=== PATIENT | female | born 1965 | race African-American/Black ===

== ENCOUNTER 2016-12-07 16:32 | Inpatient (IN) | payer OTHER ==
[2016-12-07 17:22] VITALS: BMI 16.2
--- NOTE | 2016-12-07 20:04 | HP ---
Admission [facility] Chief Complaint: REHAB SERVICES Allergies/Adverse Reactions: Allergies Allergy/AdvReac Type Severity Reaction Status Date / Time Penicillins AdvReac Verified 12/07/16 19:57 History of Present Illness: 50 Y.O. WOMAN WITH A HISTORY OF CRACK COCAINE DEPENDENCE. SHE REPORTS HAVING A 27 YEAR HISTORY OF BEING CLEAN BUT STATES SHE RELAPSED IN 2012. Exam Limitations: No Limitations - Ebola screening Have you traveled outside of the country in the last 21 days: No (N) Have you had contact with anyone from an Ebola affected area: No Have you been sick,other than usual withdrawal symptoms: No Do you have a fever: No - Review of Systems Constitutional: Chills, Loss of Appetite, Unintentional Wgt. Loss EENT: reports: Blurred Vision, Double Vision, Tearing Respiratory: reports: Cough, Wheezing Cardiac: reports: No Symptoms Reported GI: reports: Nausea : reports: No Symptoms Reported Musculoskeletal: reports: Back Pain Integumentary: reports: No Symptoms Reported Neuro: reports: Headache (H/O MIGRAINES) Endocrine: reports: No Symptoms Reported Hematology: reports: Anemia Psychiatric: reports: Orientated x3 Other Systems: Reviewed and Negative Patient History - Patient Medical History Hx Anemia: Yes Hx Asthma: Yes Hx Chronic Obstructive Pulmonary Disease (COPD): No Hx Cancer: Yes (BREAST CA-IN REMISSION SINCE 2004 ) Hx Cardiac Disorders: No Hx Congestive Heart Failure: No Hx Hypertension: Yes Hx Hypercholesterolemia: Yes Hx Pacemaker: No HX Cerebrovascular Accident: No Hx Seizures: No Hx Dementia: No Hx Diabetes: No Hx Gastrointestinal Disorders: Yes (GERD) Hx Liver Disease: No Hx Genitourinary Disorders: No Hx Sexually Transmitted Disorders: No Hx Renal Disease (ESRD): No Hx Thyroid Disease: No Hx Human Immunodeficiency Virus (HIV): No Hx Hepatitis C: No Hx Depression: Yes Hx Suicide Attempt: Yes (ATTEMPTED TO OVERDOSE ON MEDICATIONS LAST MONTH) Hx Bipolar Disorder: Yes Hx Schizophrenia: Yes - Patient Surgical History Past Surgical History: Yes Other Surgical History: RIGHT BREAST MASTECTOMY AND RECONSTRUCTION Anesthesia Reaction: No - PPD History Previous Implant?: Yes Documented Results: Negative w/o proof PPD to be Administered?: Yes - Reproductive History Patient is a Female of Child Bearing Age (11 -55 yrs old): Yes Last Menstrual Period: 12/09/04 Patient : No - Smoking Cessation Smoking history: Current every day smoker Have you smoked in the past 12 months: Yes Aproximately how many cigarettes per day: 10 Initiated information on smoking cessation: Yes 'Breaking Loose' booklet given: 12/07/16 - Substance & Tx. History Hx Alcohol Use: No Hx Substance Use: Yes Substance Use Type: Cocaine Hx Substance Use Treatment: Yes (REHAB: 1994; DENIES DETOX ) - Substances Abused Crack Route: Smoking Frequency: 3-6 times per week Amount used: $400 Age of first use: 25 Date of Last Use: 12/06/16 Family Disease History - Family Disease History Family History: Denies Admission Physical Exam S - Vital Signs Vital Signs: Vital Signs - 24 hr 12/07/16 17:20 Temperature 95.9 F L Pulse Rate 101 H Respiratory 20 Rate Blood Pressure 126/78 - Physical General Appearance: Yes: Thin HEENTM: Yes: Hearing grossly Normal, Normal ENT Inspection, Normocephalic Respiratory: Yes: Chest Non-Tender, Lungs Clear, Normal Breath Sounds, No Respiratory Distress, No Accessory Muscle Use Neck: Yes: No masses,lesions,Nodules Breast: Yes: Mastectomy, Surgical Scar (RIGHT BREAST) Cardiology: Yes: Regular Rhythm, Tachycardia Abdominal: Yes: Non Tender, Flat, Soft Genitourinary: Yes: Other (NO COMPLAINTS REPORTED) Back: Yes: Normal Inspection Musculoskeletal: Yes: Back pain Extremities: Yes: Normal Inspection, Normal Range of Motion 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 WENT TO ER AT [facility]LI[facility] TODAY FOR MALAISE. CXR PERFORMED AND FINDINGS WERE FOLLOWED: STELLATE DENSITY IN THE RIGHT UPPER LOBE. A NODULE IS NOT EXCLUDED. CT OF THE CHEST IS RECOMMENDED ON A NONEMERGENT BASIS. PT. HAS A FOLLOW-UP APPOINTMENT SCHEDULED FOR 12/14/16. IT WAS ADVISED THAT THE CLIENT MAINTAIN THAT APPOINTMENT AND SEEK REHAB SERVICES AFTERWARD. PT. REFUSED AND STATED SHE WANTED TO DO REHAB NOW AND INTENDS TO RESCHEDULE THE FOLLOW-UP APPOINTMENT. - Diagnostic (1) Cocaine dependence, uncomplicated Current Visit: Yes Status: Chronic (2) Asthma Current Visit: Yes Status: Chronic (3) Osteoporosis Current Visit: Yes Status: Chronic (4) GERD (gastroesophageal reflux disease) Current Visit: Yes Status: Chronic (5) Underweight Current Visit: Yes Status: Chronic (6) Migraine Current Visit: Yes Status: Chronic Cleared for Admission [facility] - Detox or Rehab [facility] Level of Care: Observation Bed Claeared for Rehab Admission: Yes [facility] Breath Alcohol Content Breath Alcohol Content: 0 Urine Pregancy Test - Result Urine Test Results: Negative- NO Line Present Urine Drug Screen - Results Drug Screen Negative: No Urine Drug Screen Results: AJ-Cocaine, TCA-Tricyclic Antidepress
[2016-12-07] MEDS ORDERED: MAGNESIUM HYDROX 2400MG/30ML ORAL SUSPENSION 30 ML CUP PO PRN (20:49)
[2016-12-07] MEDS ORDERED: ACETAMINOPHEN 325 MG TABLET (FP) PO PRN (20:49)
[2016-12-07] MEDS ORDERED: diphenhydrAMINE HCL 50 MG CAPSULE PO PRN (20:49)
[2016-12-07] MEDS ORDERED: LOPERAMIDE HCL 2 MG CAPSULE PO PRN (20:49)
[2016-12-07] MEDS ORDERED: IBUPROFEN 600 MG TABLET (FP) PO PRN (20:49)
[2016-12-07] MEDS ORDERED: P-EPHED 60MG/TRIPROLIDI 2.5MG TABLET PO PRN (20:49)
[2016-12-07] MEDS ORDERED: MAGNESIUM CITRATE 300 ML BOTTLE PO PRN (20:49)
[2016-12-07] MEDS ORDERED: MENTHOL/PHENOL 1 EACH UD MM PRN (20:49)
[2016-12-07] MEDS ORDERED: MAG HYDROX/AL HYDROX/SIMETH 30 ML UNIT-DOSE CUP PO PRN (20:49)
[2016-12-07] MEDS ORDERED: guaiFENesin/D-METHORPHAN HB 10 ML UNIT-DOSE CUPS PO PRN (20:49)
[2016-12-07] MEDS ORDERED: TUBERCULIN PPD 5 TU/0.1ML VIAL ID ONE (23:06)
[2016-12-07] MEDS: FLUTICASONE/SALMETEROL 100 MCG/50 MCG DISKUS IH SCH (23:09)
[2016-12-07] MEDS: THIAMINE HCL 100 MG TABLET (FP) PO SCH (23:09)
[2016-12-08] MEDS ORDERED: PT OWN MED DRAWER 7, Y5N ONE (08:16)
[2016-12-08 09:58] LABS: URINE APPEARANCE CLEAR; URINE BILIRUBIN NEGATIVE (NEGATIVE); URINE BLOOD NEGATIVE (NEGATIVE); URINE COLOR STRAW; URINE GLUCOSE (UA) NEGATIVE (NEGATIVE); URINE KETONE NEGATIVE (NEGATIVE); URINE NITRITE NEGATIVE (NEGATIVE); URINE PROTEIN NEGATIVE (NEGATIVE); URINE UROBILINOGEN NEGATIVE mg/dL (0.2-1.0)
[2016-12-08 10:00] LABS: URINE LEUK ESTERASE 1+ (NEGATIVE)
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
[2016-12-08 10:27] LABS: URINE BACTERIA RARE /hpf (NONE SEEN); URINE RBC 1 /hpf (0-3); URINE WBC 3 /hpf (3-5)
[2016-12-08] MEDS: FLUTICASONE/SALMETEROL 100 MCG/50 MCG DISKUS IH SCH ×2 (10:29→21:31)
[2016-12-08] MEDS: NICOTINE 14 MG/24 HOURS TOPICAL PATCH TD SCH (10:30)
[2016-12-08] MEDS: PRENATAL VITAMINS W/ FOLIC ACID TABLET (FP) PO SCH (10:30)
[2016-12-08] MEDS: PANTOPRAZOLE 20 MG TABLET (FP) PO SCH (10:31)
[2016-12-08] MEDS: QUEtiapine FUMARATE 50 MG TABLET PO SCH (13:04)
[2016-12-08 13:14] LABS: MCH 29.6 pg (25.7-33.7); MCHC 32.5 g/dl (32.0-36.0); MEAN CELL VOLUME 91.2 fl (80-96); PLATELET COUNT 290 K/MM3 (134-434); RDW 14.6 % (11.6-15.6); WHITE BLOOD COUNT 7.9 K/mm3 (4.0-10.0)
[2016-12-08 13:35] LABS: ALBUMIN 3.1 g/dl (3.4-5.0); ALK PHOS 84 U/L (45-117); ANION GAP 8 (8-16); BILIRUBIN,TOTAL 0.1 mg/dL (0.2-1.0); CALCIUM 8.8 mg/dL (8.5-10.1); CO2 27 mmol/L (21-32); GLUCOSE,RANDOM 68 mg/dL (74-106); SGOT/AST 7 U/L (15-37); SGPT/ALT 13 U/L (12-78); TOT PROT 6.9 g/dl (6.4-8.2)
--- NOTE | 2016-12-08 14:50 | EKG ---
Test Reason : Blood Pressure : / mmHG Vent. Rate : 092 BPM Atrial Rate : 092 BPM P-R Int : 128 ms QRS Dur : 098 ms QT Int : 388 ms P-R-T Axes : 079 085 079 degrees QTc Int : 479 ms NORMAL SINUS RHYTHM NORMAL ECG NO PREVIOUS ECGS AVAILABLE Confirmed by MOOKIE NAILS MD ([id number]) on 12/08/2016 2:50:09 PM Referred By: Confirmed By:MOOKIE NAILS MD
[2016-12-08] MEDS: IBUPROFEN 400 MG TABLET (FP) PO PRN (18:28)
[2016-12-08] MEDS: LIDOCAINE 5% TOPICAL PATCH TP SCH (18:32)
[2016-12-08] MEDS: LIDOCAINE PATCH REMOVAL MC SCH (21:29)
[2016-12-08] MEDS: THIAMINE HCL 100 MG TABLET (FP) PO SCH (21:30)
[2016-12-08] MEDS: MIRTAZAPINE 15 MG TABLET (FP) PO SCH (21:30)
[2016-12-08] MEDS: QUEtiapine FUMARATE 100 MG TABLET (FP) PO SCH (21:30)
[2016-12-09] MEDS: NICOTINE 14 MG/24 HOURS TOPICAL PATCH TD SCH (10:19)
[2016-12-09] MEDS: LIDOCAINE 5% TOPICAL PATCH TP SCH (10:19)
[2016-12-09] MEDS: FLUTICASONE/SALMETEROL 100 MCG/50 MCG DISKUS IH SCH ×2 (10:20→21:25)
[2016-12-09] MEDS: PRENATAL VITAMINS W/ FOLIC ACID TABLET (FP) PO SCH (10:20)
[2016-12-09] MEDS: QUEtiapine FUMARATE 50 MG TABLET PO SCH ×2 (10:20→13:00)
[2016-12-09] MEDS: PANTOPRAZOLE 20 MG TABLET (FP) PO SCH (10:20)
[2016-12-09] MEDS: IBUPROFEN 400 MG TABLET (FP) PO PRN ×2 (12:49→18:38)
[2016-12-09] MEDS: MIRTAZAPINE 15 MG TABLET (FP) PO SCH (21:26)
[2016-12-09] MEDS: LIDOCAINE PATCH REMOVAL MC SCH (21:26)
[2016-12-09] MEDS: THIAMINE HCL 100 MG TABLET (FP) PO SCH (21:26)
[2016-12-09] MEDS: QUEtiapine FUMARATE 100 MG TABLET (FP) PO SCH (21:26)
[2016-12-10] MEDS: IBUPROFEN 400 MG TABLET (FP) PO PRN ×3 (04:14→22:36)
[2016-12-10] MEDS: NICOTINE 14 MG/24 HOURS TOPICAL PATCH TD SCH (10:24)
[2016-12-10] MEDS: QUEtiapine FUMARATE 50 MG TABLET PO SCH ×2 (10:25→13:02)
[2016-12-10] MEDS: FLUTICASONE/SALMETEROL 100 MCG/50 MCG DISKUS IH SCH ×2 (10:25→21:40)
[2016-12-10] MEDS: PANTOPRAZOLE 20 MG TABLET (FP) PO SCH (10:25)
[2016-12-10] MEDS: LIDOCAINE 5% TOPICAL PATCH TP SCH (10:25)
[2016-12-10] MEDS: PRENATAL VITAMINS W/ FOLIC ACID TABLET (FP) PO SCH (10:25)
[2016-12-10] MEDS: MIRTAZAPINE 15 MG TABLET (FP) PO SCH (21:39)
[2016-12-10] MEDS: THIAMINE HCL 100 MG TABLET (FP) PO SCH (21:39)
[2016-12-10] MEDS: QUEtiapine FUMARATE 100 MG TABLET (FP) PO SCH (21:39)
[2016-12-10] MEDS: LIDOCAINE PATCH REMOVAL MC SCH (21:40)
[2016-12-11] MEDS: IBUPROFEN 400 MG TABLET (FP) PO PRN ×3 (07:56→21:25)
[2016-12-11] MEDS: FLUTICASONE/SALMETEROL 100 MCG/50 MCG DISKUS IH SCH ×2 (09:39→21:27)
[2016-12-11] MEDS: PRENATAL VITAMINS W/ FOLIC ACID TABLET (FP) PO SCH (09:39)
[2016-12-11] MEDS: LIDOCAINE 5% TOPICAL PATCH TP SCH (09:39)
[2016-12-11] MEDS: NICOTINE 14 MG/24 HOURS TOPICAL PATCH TD SCH (09:40)
[2016-12-11] MEDS: QUEtiapine FUMARATE 50 MG TABLET PO SCH ×2 (09:40→13:07)
[2016-12-11] MEDS: PANTOPRAZOLE 20 MG TABLET (FP) PO SCH (09:40)
[2016-12-11] MEDS: THIAMINE HCL 100 MG TABLET (FP) PO SCH (21:25)
[2016-12-11] MEDS: MIRTAZAPINE 15 MG TABLET (FP) PO SCH (21:25)
[2016-12-11] MEDS: QUEtiapine FUMARATE 100 MG TABLET (FP) PO SCH (21:25)
[2016-12-11] MEDS: LIDOCAINE PATCH REMOVAL MC SCH (21:26)
[2016-12-12] MEDS: IBUPROFEN 400 MG TABLET (FP) PO PRN ×2 (05:02→19:05)
[2016-12-12] MEDS: QUEtiapine FUMARATE 50 MG TABLET PO SCH ×2 (09:43→13:03)
[2016-12-12] MEDS: FLUTICASONE/SALMETEROL 100 MCG/50 MCG DISKUS IH SCH ×2 (09:43→21:34)
[2016-12-12] MEDS: NICOTINE 14 MG/24 HOURS TOPICAL PATCH TD SCH (09:43)
[2016-12-12] MEDS: PANTOPRAZOLE 20 MG TABLET (FP) PO SCH (09:44)
[2016-12-12] MEDS: LIDOCAINE 5% TOPICAL PATCH TP SCH (09:44)
[2016-12-12] MEDS: PRENATAL VITAMINS W/ FOLIC ACID TABLET (FP) PO SCH (09:44)
[2016-12-12] MEDS: ALBUTEROL SO4 6.7 GM HFA INHALER IH PRN (15:12)
[2016-12-12] MEDS: QUEtiapine FUMARATE 100 MG TABLET (FP) PO SCH (21:33)
[2016-12-12] MEDS: MIRTAZAPINE 15 MG TABLET (FP) PO SCH (21:33)
[2016-12-12] MEDS: THIAMINE HCL 100 MG TABLET (FP) PO SCH (21:33)
[2016-12-12] MEDS: LIDOCAINE PATCH REMOVAL MC SCH (21:54)
[2016-12-13] MEDS: IBUPROFEN 400 MG TABLET (FP) PO PRN ×2 (04:31→13:31)
[2016-12-13] MEDS ORDERED: PT OWN MED DRAWER 7, Y5N ONE (09:09)
[2016-12-13] MEDS: PRENATAL VITAMINS W/ FOLIC ACID TABLET (FP) PO SCH (10:23)
[2016-12-13] MEDS: PANTOPRAZOLE 20 MG TABLET (FP) PO SCH (10:23)
[2016-12-13] MEDS: QUEtiapine FUMARATE 50 MG TABLET PO SCH ×3 (10:23→21:39)
[2016-12-13] MEDS: LIDOCAINE 5% TOPICAL PATCH TP SCH (10:24)
[2016-12-13] MEDS: NICOTINE 14 MG/24 HOURS TOPICAL PATCH TD SCH (10:25)
[2016-12-13] MEDS: FLUTICASONE/SALMETEROL 100 MCG/50 MCG DISKUS IH SCH ×2 (10:51→21:38)
--- NOTE | 2016-12-13 13:36 | PN ---
Psychiatric Progress Note Vital Signs: Vital Signs Period Temp Pulse Resp BP Sys/Buenrostro Pulse Ox Last 24 Hr 98.0 F 98 16-18 106/69 Date of Session: 12/13/16 Chief Complaint:: William still having sleeping difficulties." HPI: Patient addresed Cociane and alcohol dependence comorbid with Bipolar disorder. ROS: Significant for BA,Migraine headache,GERD,Ostheoporosis. Current Medications: Active Medications Generic Name Dose Route Start Last Admin Trade Name Freq PRN Reason Stop Dose Admin Acetaminophen 650 mg 12/07/16 20:49 Tylenol - PO Q4H PRN PAIN Al Hydroxide/Mg Hydroxide 30 ml 12/07/16 20:49 Mylanta Oral Suspension - PO Q6H PRN DYSPEPSIA Albuterol Sulfate 2 puff 12/07/16 20:51 12/12/16 15:12 Ventolin Hfa Inhaler - IH 2 puff Q4H PRN Administration SHORT OF BREATH/WHEEZING Diphenhydramine HCl 50 mg 12/07/16 20:49 12/09/16 21:27 Benadryl - PO 50 mg HSMR1 PRN Administration INSOMNIA Eucalyptus/Menthol/Phenol/Sorbitol 1 each 12/07/16 20:49 Cepastat Lozenge - MM Q4H PRN SORE THROAT Guaifenesin 10 ml 12/07/16 20:49 Robitussin Dm - PO Q6H PRN COUGH Ibuprofen 800 mg 12/08/16 15:48 12/13/16 13:31 Motrin - PO 800 mg Q6H PRN Administration SEVERE PAIN Lidocaine 1 patch 12/08/16 17:30 12/13/16 10:24 Lidoderm Patch - TP 1 patch DAILY MANAN Administration Lidocaine HCl 20 ml 12/13/16 13:09 Xylocaine 2% Viscous Oral - MM Q4HPO PRN ORAL PAIN/MOUTH SORES Loperamide HCl 4 mg 12/07/16 20:49 Imodium - PO Q6H PRN DIARRHEA Magnesium Citrate 300 ml 12/07/16 20:49 Citroma - PO Q48H PRN CONSTIPATION Magnesium Hydroxide 30 ml 12/07/16 20:49 12/11/16 10:17 Milk Of Magnesia - PO 30 ml DAILY PRN Administration CONSTIPATION Mirtazapine 15 mg 12/08/16 22:00 12/12/16 21:33 Remeron - PO 15 mg HS MANAN Administration Miscellaneous 1 each 12/08/16 22:00 12/12/16 21:54 Lidoderm Patch Removal MC 1 each DAILY@2200 MANAN Administration Nicotine 14 mg 12/08/16 10:00 12/13/16 10:25 Nicoderm Patch - TD 14 mg DAILY MANAN Administration Nicotine Polacrilex 2 mg 12/07/16 20:49 Nicorette Gum - BC Q2H PRN NICOTINE REPLACEMENT RX Pantoprazole Sodium 20 mg 12/08/16 10:00 12/13/16 10:23 Protonix - PO 20 mg DAILY MANAN Administration Multivit/Folic Acid/Iron 1 tab 12/08/16 10:00 12/13/16 10:23 Vitamins (Sjr) - PO 1 tab DAILY MANAN Administration Pseudoephedrine/Triprolidine 1 combo 12/07/16 20:49 Actifed - PO TID PRN NASAL CONGESTION Quetiapine Fumarate 50 mg 12/08/16 14:00 12/13/16 10:23 Seroquel - PO 50 mg BID@1000,1400 MANAN Administration Quetiapine Fumarate 150 mg 12/13/16 22:00 Seroquel - PO HS MANAN Fluticasone/Salmeterol 1 puff 12/07/16 22:00 12/13/16 10:51 Advair 100mcg/50mcg - IH 1 puff BID MANAN Administration Thiamine HCl 100 mg 12/07/16 22:00 12/12/16 21:33 Vitamin B1 - PO 100 mg HS MANAN Administration Current Side Effect: No Lab tests ordered: No Lab tests reviewed: Yes Provider note:: Chart was revuewed,patient was seen.She addressed ongoing sleeping difficulties :inability to fallasleep,interrupted sleep pattern.Properties iof Seroquel has been discussed with the patient including side eefcts,benefits and dose adjustment.Seroquel 100 mg po hs will be adjusted to 150 mg po hs. Supportive therapy provided. Total face to face time:: 30 Mental Status Exam - Mental Status Exam Alert and Oriented to: Time, Place, Person Cognitive Function: Grossly Intact Patient Appearance: Unkempt Mood: Anxious Affect: Mood Congruent, Labile Patient Behavior: Cooperative Speech Pattern: Clear Voice Loudness: Normal Thought Process: Goal Oriented Thought Disorder: Not Present Hallucinations: Denies Suicidal Ideation: Denies Homicidal Ideation: Denies Insight/Judgement: Fair Sleep: Difficulty falling asleep Appetite: Good Muscle strength/Tone: Normal Gait/Station: Normal Psychiatric Treatment Plan - Problem List (1) Asthma Current Visit: Yes (2) Cocaine dependence, uncomplicated Current Visit: Yes (3) GERD (gastroesophageal reflux disease) Current Visit: Yes (4) Osteoporosis Current Visit: Yes (5) Migraine Current Visit: Yes (6) Alcohol abuse Current Visit: Yes (7) Bipolar disorder Current Visit: Yes
[2016-12-13] MEDS: LIDOCAINE PATCH REMOVAL MC SCH (21:38)
[2016-12-13] MEDS: MIRTAZAPINE 15 MG TABLET (FP) PO SCH (21:38)
[2016-12-13] MEDS: THIAMINE HCL 100 MG TABLET (FP) PO SCH (21:38)
[2016-12-13] MEDS ORDERED: QUEtiapine FUMARATE 25 MG TABLET (FP) ONE (21:40)
[2016-12-14] MEDS: IBUPROFEN 400 MG TABLET (FP) PO PRN ×3 (00:38→21:42)
[2016-12-14] MEDS: LIDOCAINE 5% TOPICAL PATCH TP SCH (10:11)
[2016-12-14] MEDS: PANTOPRAZOLE 20 MG TABLET (FP) PO SCH (10:12)
[2016-12-14] MEDS: FLUTICASONE/SALMETEROL 100 MCG/50 MCG DISKUS IH SCH ×2 (10:12→21:43)
[2016-12-14] MEDS: PRENATAL VITAMINS W/ FOLIC ACID TABLET (FP) PO SCH (10:12)
[2016-12-14] MEDS: NICOTINE 14 MG/24 HOURS TOPICAL PATCH TD SCH (10:13)
[2016-12-14] MEDS: QUEtiapine FUMARATE 50 MG TABLET PO SCH ×3 (10:13→21:41)
[2016-12-14] MEDS ORDERED: QUEtiapine FUMARATE 25 MG TABLET (FP) ONE (12:01)
[2016-12-14] MEDS: LIDOCAINE VISCOUS 2% ORAL/TOP 20 ML UNIT-DOSE CUP MM PRN (12:32)
[2016-12-14] MEDS: MIRTAZAPINE 15 MG TABLET (FP) PO SCH (21:41)
[2016-12-14] MEDS: THIAMINE HCL 100 MG TABLET (FP) PO SCH (21:41)
[2016-12-14] MEDS: LIDOCAINE PATCH REMOVAL MC SCH (21:43)
[2016-12-15] MEDS: IBUPROFEN 400 MG TABLET (FP) PO PRN (03:42)
[2016-12-15] MEDS: FLUTICASONE/SALMETEROL 100 MCG/50 MCG DISKUS IH SCH (09:59)
[2016-12-15] MEDS: LIDOCAINE 5% TOPICAL PATCH TP SCH (09:59)
[2016-12-15] MEDS: NICOTINE 14 MG/24 HOURS TOPICAL PATCH TD SCH (10:00)
[2016-12-15] MEDS: QUEtiapine FUMARATE 50 MG TABLET PO SCH ×3 (10:00→21:40)
[2016-12-15] MEDS: PANTOPRAZOLE 20 MG TABLET (FP) PO SCH (10:00)
[2016-12-15] MEDS: PRENATAL VITAMINS W/ FOLIC ACID TABLET (FP) PO SCH (10:00)
[2016-12-15] MEDS: MIRTAZAPINE 15 MG TABLET (FP) PO SCH (21:40)
[2016-12-15] MEDS: THIAMINE HCL 100 MG TABLET (FP) PO SCH (21:40)
[2016-12-15] MEDS: LIDOCAINE PATCH REMOVAL MC SCH (21:40)
[2016-12-15] MEDS: BUDESONIDE/FORMETEROL FUMARATE 80/4.5 mcg INHALER IH SCH (21:41)
[2016-12-16] MEDS: BUDESONIDE/FORMETEROL FUMARATE 80/4.5 mcg INHALER IH SCH ×2 (09:46→21:37)
[2016-12-16] MEDS: LIDOCAINE 5% TOPICAL PATCH TP SCH (09:47)
[2016-12-16] MEDS: NICOTINE 14 MG/24 HOURS TOPICAL PATCH TD SCH (09:47)
[2016-12-16] MEDS: PRENATAL VITAMINS W/ FOLIC ACID TABLET (FP) PO SCH (09:47)
[2016-12-16] MEDS: QUEtiapine FUMARATE 50 MG TABLET PO SCH ×3 (09:47→21:35)
[2016-12-16] MEDS: PANTOPRAZOLE 20 MG TABLET (FP) PO SCH (09:48)
[2016-12-16] MEDS: IBUPROFEN 400 MG TABLET (FP) PO PRN ×2 (10:37→21:37)
[2016-12-16] MEDS ORDERED: QUEtiapine FUMARATE 25 MG TABLET (FP) ONE (11:54)
[2016-12-16] MEDS: MIRTAZAPINE 15 MG TABLET (FP) PO SCH (21:35)
[2016-12-16] MEDS: THIAMINE HCL 100 MG TABLET (FP) PO SCH (21:35)
[2016-12-16] MEDS: LIDOCAINE PATCH REMOVAL MC SCH (21:37)
[2016-12-17] MEDS: BUDESONIDE/FORMETEROL FUMARATE 80/4.5 mcg INHALER IH SCH ×2 (10:08→21:52)
[2016-12-17] MEDS: LIDOCAINE 5% TOPICAL PATCH TP SCH (10:08)
[2016-12-17] MEDS: NICOTINE 14 MG/24 HOURS TOPICAL PATCH TD SCH (10:08)
[2016-12-17] MEDS: QUEtiapine FUMARATE 50 MG TABLET PO SCH ×3 (10:09→21:52)
[2016-12-17] MEDS: PRENATAL VITAMINS W/ FOLIC ACID TABLET (FP) PO SCH (10:09)
[2016-12-17] MEDS: PANTOPRAZOLE 20 MG TABLET (FP) PO SCH (10:09)
[2016-12-17] MEDS ORDERED: PT OWN MED DRAWER 7, Y5N ONE (19:46)
[2016-12-17] MEDS: THIAMINE HCL 100 MG TABLET (FP) PO SCH (21:52)
[2016-12-17] MEDS: MIRTAZAPINE 15 MG TABLET (FP) PO SCH (21:52)
[2016-12-17] MEDS: LIDOCAINE PATCH REMOVAL MC SCH (22:32)
[2016-12-18] MEDS: IBUPROFEN 400 MG TABLET (FP) PO PRN ×2 (00:30→15:35)
[2016-12-18] MEDS ORDERED: PT OWN MED DRAWER 7, Y5N ONE (08:48)
[2016-12-18] MEDS: LIDOCAINE VISCOUS 2% ORAL/TOP 20 ML UNIT-DOSE CUP MM PRN (08:50)
[2016-12-18] MEDS: NICOTINE 14 MG/24 HOURS TOPICAL PATCH TD SCH (09:59)
[2016-12-18] MEDS: PRENATAL VITAMINS W/ FOLIC ACID TABLET (FP) PO SCH (10:00)
[2016-12-18] MEDS: LIDOCAINE 5% TOPICAL PATCH TP SCH (10:00)
[2016-12-18] MEDS: QUEtiapine FUMARATE 50 MG TABLET PO SCH ×3 (10:00→21:44)
[2016-12-18] MEDS: PANTOPRAZOLE 20 MG TABLET (FP) PO SCH (10:00)
[2016-12-18] MEDS: BUDESONIDE/FORMETEROL FUMARATE 80/4.5 mcg INHALER IH SCH ×2 (10:01→21:45)
[2016-12-18] MEDS: MIRTAZAPINE 15 MG TABLET (FP) PO SCH (21:44)
[2016-12-18] MEDS: THIAMINE HCL 100 MG TABLET (FP) PO SCH (21:44)
[2016-12-18] MEDS: LIDOCAINE PATCH REMOVAL MC SCH (21:45)
[2016-12-19] MEDS ORDERED: PT OWN MED DRAWER 7, Y5N ONE (08:54)
[2016-12-19] MEDS: BUDESONIDE/FORMETEROL FUMARATE 80/4.5 mcg INHALER IH SCH ×2 (09:57→22:03)
[2016-12-19] MEDS: NICOTINE 14 MG/24 HOURS TOPICAL PATCH TD SCH (09:57)
[2016-12-19] MEDS: PRENATAL VITAMINS W/ FOLIC ACID TABLET (FP) PO SCH (09:57)
[2016-12-19] MEDS: PANTOPRAZOLE 20 MG TABLET (FP) PO SCH (09:57)
[2016-12-19] MEDS: QUEtiapine FUMARATE 50 MG TABLET PO SCH ×3 (09:57→22:02)
[2016-12-19] MEDS: LIDOCAINE 5% TOPICAL PATCH TP SCH (09:58)
[2016-12-19] MEDS: IBUPROFEN 400 MG TABLET (FP) PO PRN (13:24)
[2016-12-19] MEDS: MIRTAZAPINE 15 MG TABLET (FP) PO SCH (22:02)
[2016-12-19] MEDS: THIAMINE HCL 100 MG TABLET (FP) PO SCH (22:02)
[2016-12-19] MEDS: LIDOCAINE PATCH REMOVAL MC SCH (22:03)
[2016-12-20] MEDS: BUDESONIDE/FORMETEROL FUMARATE 80/4.5 mcg INHALER IH SCH ×2 (10:14→21:38)
[2016-12-20] MEDS: PANTOPRAZOLE 20 MG TABLET (FP) PO SCH (10:14)
[2016-12-20] MEDS: LIDOCAINE 5% TOPICAL PATCH TP SCH (10:14)
[2016-12-20] MEDS: NICOTINE 14 MG/24 HOURS TOPICAL PATCH TD SCH (10:14)
[2016-12-20] MEDS: PRENATAL VITAMINS W/ FOLIC ACID TABLET (FP) PO SCH (10:14)
[2016-12-20] MEDS: QUEtiapine FUMARATE 50 MG TABLET PO SCH ×3 (10:15→21:38)
[2016-12-20] MEDS: IBUPROFEN 400 MG TABLET (FP) PO PRN (10:17)
[2016-12-20] MEDS ORDERED: QUEtiapine FUMARATE 25 MG TABLET (FP) ONE (19:50)
[2016-12-20] MEDS: MIRTAZAPINE 15 MG TABLET (FP) PO SCH (21:38)
[2016-12-20] MEDS: THIAMINE HCL 100 MG TABLET (FP) PO SCH (21:38)
[2016-12-20] MEDS: LIDOCAINE PATCH REMOVAL MC SCH (23:08)
[2016-12-21] MEDS: IBUPROFEN 400 MG TABLET (FP) PO PRN ×2 (00:25→20:02)
[2016-12-21] MEDS ORDERED: PT OWN MED DRAWER 7, Y5N ONE ×2 (08:43→20:08)
[2016-12-21] MEDS: ALBUTEROL SO4 6.7 GM HFA INHALER IH PRN (10:00)
[2016-12-21] MEDS: PRENATAL VITAMINS W/ FOLIC ACID TABLET (FP) PO SCH (10:08)
[2016-12-21] MEDS: BUDESONIDE/FORMETEROL FUMARATE 80/4.5 mcg INHALER IH SCH ×2 (10:09→21:01)
[2016-12-21] MEDS: PANTOPRAZOLE 20 MG TABLET (FP) PO SCH (10:09)
[2016-12-21] MEDS: NICOTINE 14 MG/24 HOURS TOPICAL PATCH TD SCH (10:09)
[2016-12-21] MEDS: QUEtiapine FUMARATE 50 MG TABLET PO SCH ×3 (10:09→21:00)
[2016-12-21] MEDS: LIDOCAINE 5% TOPICAL PATCH TP SCH (10:09)
--- NOTE | 2016-12-21 13:31 | PN ---
[facility] Progress Note Note: Pt. claims she takes Imitrex for headaches at home,mostly at night. Imitrex 25mg HS PRN
[2016-12-21] MEDS: THIAMINE HCL 100 MG TABLET (FP) PO SCH (21:00)
[2016-12-21] MEDS: MIRTAZAPINE 15 MG TABLET (FP) PO SCH (21:00)
[2016-12-21] MEDS: LIDOCAINE PATCH REMOVAL MC SCH (21:01)
[2016-12-22] MEDS: SUMAtriptan SUCCINATE 25 MG TABLET PO PRN (00:30)
[2016-12-22] MEDS ORDERED: PT OWN MED DRAWER 7, Y5N ONE ×2 (01:17→08:45)
[2016-12-22] MEDS: LIDOCAINE 5% TOPICAL PATCH TP SCH (09:55)
[2016-12-22] MEDS: NICOTINE 14 MG/24 HOURS TOPICAL PATCH TD SCH (09:55)
[2016-12-22] MEDS: PANTOPRAZOLE 20 MG TABLET (FP) PO SCH (09:56)
[2016-12-22] MEDS: BUDESONIDE/FORMETEROL FUMARATE 80/4.5 mcg INHALER IH SCH ×2 (09:56→21:42)
[2016-12-22] MEDS: PRENATAL VITAMINS W/ FOLIC ACID TABLET (FP) PO SCH (09:56)
[2016-12-22] MEDS: QUEtiapine FUMARATE 50 MG TABLET PO SCH ×3 (09:56→21:39)
[2016-12-22] MEDS: MIRTAZAPINE 15 MG TABLET (FP) PO SCH (21:38)
[2016-12-22] MEDS: THIAMINE HCL 100 MG TABLET (FP) PO SCH (21:39)
[2016-12-22] MEDS: LIDOCAINE PATCH REMOVAL MC SCH (21:42)
[2016-12-23] MEDS: IBUPROFEN 400 MG TABLET (FP) PO PRN (01:10)
[2016-12-23] MEDS: NICOTINE 14 MG/24 HOURS TOPICAL PATCH TD SCH (10:09)
[2016-12-23] MEDS: LIDOCAINE 5% TOPICAL PATCH TP SCH (10:09)
[2016-12-23] MEDS: BUDESONIDE/FORMETEROL FUMARATE 80/4.5 mcg INHALER IH SCH ×2 (10:09→21:32)
[2016-12-23] MEDS: PRENATAL VITAMINS W/ FOLIC ACID TABLET (FP) PO SCH (10:10)
[2016-12-23] MEDS: QUEtiapine FUMARATE 50 MG TABLET PO SCH ×3 (10:10→21:31)
[2016-12-23] MEDS: PANTOPRAZOLE 20 MG TABLET (FP) PO SCH (10:10)
[2016-12-23] MEDS ORDERED: PT OWN MED DRAWER 7, Y5N ONE (20:53)
[2016-12-23] MEDS: ALBUTEROL SO4 6.7 GM HFA INHALER IH PRN (20:54)
[2016-12-23] MEDS: MIRTAZAPINE 15 MG TABLET (FP) PO SCH (21:31)
[2016-12-23] MEDS: THIAMINE HCL 100 MG TABLET (FP) PO SCH (21:31)
[2016-12-23] MEDS: LIDOCAINE PATCH REMOVAL MC SCH (21:32)
[2016-12-24] MEDS ORDERED: PT OWN MED DRAWER 7, Y5N ONE (08:44)
[2016-12-24] MEDS: BUDESONIDE/FORMETEROL FUMARATE 80/4.5 mcg INHALER IH SCH ×2 (10:15→21:43)
[2016-12-24] MEDS: PANTOPRAZOLE 20 MG TABLET (FP) PO SCH (10:15)
[2016-12-24] MEDS: NICOTINE 14 MG/24 HOURS TOPICAL PATCH TD SCH (10:15)
[2016-12-24] MEDS: PRENATAL VITAMINS W/ FOLIC ACID TABLET (FP) PO SCH (10:15)
[2016-12-24] MEDS: LIDOCAINE 5% TOPICAL PATCH TP SCH (10:16)
[2016-12-24] MEDS ORDERED: QUEtiapine FUMARATE 25 MG TABLET (FP) ONE (13:20)
[2016-12-24] MEDS: QUEtiapine FUMARATE 50 MG TABLET PO SCH ×2 (13:25→21:42)
[2016-12-24] MEDS: THIAMINE HCL 100 MG TABLET (FP) PO SCH (21:42)
[2016-12-24] MEDS: MIRTAZAPINE 15 MG TABLET (FP) PO SCH (21:42)
[2016-12-24] MEDS: LIDOCAINE PATCH REMOVAL MC SCH (21:44)
[2016-12-25] MEDS: IBUPROFEN 400 MG TABLET (FP) PO PRN (00:48)
[2016-12-25] MEDS: LIDOCAINE 5% TOPICAL PATCH TP SCH (09:46)
[2016-12-25] MEDS: PANTOPRAZOLE 20 MG TABLET (FP) PO SCH (09:47)
[2016-12-25] MEDS: PRENATAL VITAMINS W/ FOLIC ACID TABLET (FP) PO SCH (09:47)
[2016-12-25] MEDS: BUDESONIDE/FORMETEROL FUMARATE 80/4.5 mcg INHALER IH SCH ×2 (09:47→21:30)
[2016-12-25] MEDS: NICOTINE 14 MG/24 HOURS TOPICAL PATCH TD SCH (09:47)
[2016-12-25] MEDS: QUEtiapine FUMARATE 50 MG TABLET PO SCH ×2 (13:06→21:29)
[2016-12-25] MEDS ORDERED: QUEtiapine FUMARATE 25 MG TABLET (FP) ONE (19:19)
[2016-12-25] MEDS: LIDOCAINE PATCH REMOVAL MC SCH (21:29)
[2016-12-25] MEDS: THIAMINE HCL 100 MG TABLET (FP) PO SCH (21:30)
[2016-12-25] MEDS: MIRTAZAPINE 15 MG TABLET (FP) PO SCH (21:30)
[2016-12-25] MEDS: SUMAtriptan SUCCINATE 25 MG TABLET PO PRN (21:31)
[2016-12-26] MEDS: IBUPROFEN 400 MG TABLET (FP) PO PRN ×2 (06:31→19:58)
[2016-12-26] MEDS: LIDOCAINE 5% TOPICAL PATCH TP SCH (09:44)
[2016-12-26] MEDS: NICOTINE 14 MG/24 HOURS TOPICAL PATCH TD SCH (09:44)
[2016-12-26] MEDS: PANTOPRAZOLE 20 MG TABLET (FP) PO SCH (09:45)
[2016-12-26] MEDS: BUDESONIDE/FORMETEROL FUMARATE 80/4.5 mcg INHALER IH SCH ×2 (09:45→21:22)
[2016-12-26] MEDS: PRENATAL VITAMINS W/ FOLIC ACID TABLET (FP) PO SCH (09:45)
[2016-12-26] MEDS: QUEtiapine FUMARATE 50 MG TABLET PO SCH ×2 (13:10→21:22)
[2016-12-26] MEDS: THIAMINE HCL 100 MG TABLET (FP) PO SCH (21:22)
[2016-12-26] MEDS: MIRTAZAPINE 15 MG TABLET (FP) PO SCH (21:23)
[2016-12-26] MEDS: LIDOCAINE PATCH REMOVAL MC SCH (21:23)
[2016-12-27] MEDS: LIDOCAINE 5% TOPICAL PATCH TP SCH (10:02)
[2016-12-27] MEDS: PRENATAL VITAMINS W/ FOLIC ACID TABLET (FP) PO SCH (10:02)
[2016-12-27] MEDS: NICOTINE 14 MG/24 HOURS TOPICAL PATCH TD SCH (10:02)
[2016-12-27] MEDS: BUDESONIDE/FORMETEROL FUMARATE 80/4.5 mcg INHALER IH SCH ×2 (10:02→21:35)
[2016-12-27] MEDS: PANTOPRAZOLE 20 MG TABLET (FP) PO SCH (10:02)
[2016-12-27] MEDS: QUEtiapine FUMARATE 50 MG TABLET PO SCH ×2 (13:48→21:35)
[2016-12-27] MEDS: THIAMINE HCL 100 MG TABLET (FP) PO SCH (21:35)
[2016-12-27] MEDS: LIDOCAINE PATCH REMOVAL MC SCH (21:36)
[2016-12-27] MEDS: MIRTAZAPINE 15 MG TABLET (FP) PO SCH (21:37)
[2016-12-27] MEDS: SUMAtriptan SUCCINATE 25 MG TABLET PO PRN (21:37)
[2016-12-28] MEDS: LIDOCAINE 5% TOPICAL PATCH TP SCH (10:27)
[2016-12-28] MEDS: PRENATAL VITAMINS W/ FOLIC ACID TABLET (FP) PO SCH (10:28)
[2016-12-28] MEDS: PANTOPRAZOLE 20 MG TABLET (FP) PO SCH (10:28)
[2016-12-28] MEDS: NICOTINE 14 MG/24 HOURS TOPICAL PATCH TD SCH (10:28)
[2016-12-28] MEDS ORDERED: PT OWN MED DRAWER 7, Y5N ONE (10:29)
[2016-12-28] MEDS: BUDESONIDE/FORMETEROL FUMARATE 80/4.5 mcg INHALER IH SCH ×2 (10:30→21:54)
[2016-12-28] MEDS: QUEtiapine FUMARATE 50 MG TABLET PO SCH ×2 (13:30→21:52)
[2016-12-28] MEDS: THIAMINE HCL 100 MG TABLET (FP) PO SCH (21:51)
[2016-12-28] MEDS: MIRTAZAPINE 15 MG TABLET (FP) PO SCH (21:52)
[2016-12-28] MEDS: LIDOCAINE PATCH REMOVAL MC SCH (21:53)
[2016-12-28] MEDS: SUMAtriptan SUCCINATE 25 MG TABLET PO PRN (21:53)
[2016-12-29] MEDS: PANTOPRAZOLE 20 MG TABLET (FP) PO SCH (10:23)
[2016-12-29] MEDS: BUDESONIDE/FORMETEROL FUMARATE 80/4.5 mcg INHALER IH SCH ×2 (10:23→21:45)
[2016-12-29] MEDS: PRENATAL VITAMINS W/ FOLIC ACID TABLET (FP) PO SCH (10:23)
[2016-12-29] MEDS: LIDOCAINE 5% TOPICAL PATCH TP SCH (10:24)
[2016-12-29] MEDS: NICOTINE 14 MG/24 HOURS TOPICAL PATCH TD SCH (10:24)
[2016-12-29] MEDS ORDERED: QUEtiapine FUMARATE 25 MG TABLET (FP) ONE (12:22)
[2016-12-29] MEDS: QUEtiapine FUMARATE 50 MG TABLET PO SCH ×2 (13:10→21:43)
[2016-12-29] MEDS ORDERED: hydrOXYzine PAMOATE 50 MG CAPSULE (FP) PO PRN (13:32)
[2016-12-29] MEDS: THIAMINE HCL 100 MG TABLET (FP) PO SCH (21:43)
[2016-12-29] MEDS: SUMAtriptan SUCCINATE 25 MG TABLET PO PRN (21:43)
[2016-12-29] MEDS: MIRTAZAPINE 15 MG TABLET (FP) PO SCH (21:43)
[2016-12-29] MEDS: LIDOCAINE PATCH REMOVAL MC SCH (21:45)
[2016-12-30] MEDS: PANTOPRAZOLE 20 MG TABLET (FP) PO SCH (10:00)
[2016-12-30] MEDS: PRENATAL VITAMINS W/ FOLIC ACID TABLET (FP) PO SCH (10:00)
[2016-12-30] MEDS: NICOTINE 14 MG/24 HOURS TOPICAL PATCH TD SCH (10:00)
[2016-12-30] MEDS: BUDESONIDE/FORMETEROL FUMARATE 80/4.5 mcg INHALER IH SCH ×2 (10:00→21:35)
[2016-12-30] MEDS: LIDOCAINE 5% TOPICAL PATCH TP SCH (10:00)
[2016-12-30] MEDS: QUEtiapine FUMARATE 50 MG TABLET PO SCH ×2 (13:12→21:35)
[2016-12-30] MEDS: THIAMINE HCL 100 MG TABLET (FP) PO SCH (21:35)
[2016-12-30] MEDS: SUMAtriptan SUCCINATE 25 MG TABLET PO PRN (21:35)
[2016-12-30] MEDS: LIDOCAINE PATCH REMOVAL MC SCH (21:37)
[2016-12-30] MEDS: MIRTAZAPINE 15 MG TABLET (FP) PO SCH (21:37)
[2016-12-31] MEDS: NICOTINE 14 MG/24 HOURS TOPICAL PATCH TD SCH (10:37)
[2016-12-31] MEDS: PRENATAL VITAMINS W/ FOLIC ACID TABLET (FP) PO SCH (10:37)
[2016-12-31] MEDS: LIDOCAINE 5% TOPICAL PATCH TP SCH (10:37)
[2016-12-31] MEDS: BUDESONIDE/FORMETEROL FUMARATE 80/4.5 mcg INHALER IH SCH ×2 (10:37→21:47)
[2016-12-31] MEDS: PANTOPRAZOLE 20 MG TABLET (FP) PO SCH (10:37)
[2016-12-31] MEDS: IBUPROFEN 400 MG TABLET (FP) PO PRN (10:38)
[2016-12-31] MEDS: NICOTINE POLACRILEX 2 MG GUM BC PRN ×2 (10:41→13:06)
[2016-12-31] MEDS ORDERED: COLLOIDAL OATMEAL 1 BAR EACH TP PRN (11:07)
[2016-12-31] MEDS: QUEtiapine FUMARATE 50 MG TABLET PO SCH ×2 (13:04→21:47)
[2016-12-31] MEDS: CYCLOBENZAPRINE HCL 10 MG TABLET (FP) PO SCH ×2 (13:05→21:47)
[2016-12-31] MEDS ORDERED: PT OWN MED DRAWER 7, Y5N ONE (19:48)
[2016-12-31] MEDS: THIAMINE HCL 100 MG TABLET (FP) PO SCH (21:47)
[2016-12-31] MEDS: SUMAtriptan SUCCINATE 25 MG TABLET PO PRN (21:48)
[2016-12-31] MEDS: MIRTAZAPINE 15 MG TABLET (FP) PO SCH (21:48)
[2016-12-31] MEDS: LIDOCAINE PATCH REMOVAL MC SCH (22:20)
[2017-01-01] MEDS: CYCLOBENZAPRINE HCL 10 MG TABLET (FP) PO SCH ×3 (07:20→21:51)
[2017-01-01] MEDS: PANTOPRAZOLE 20 MG TABLET (FP) PO SCH (10:00)
[2017-01-01] MEDS: NICOTINE 14 MG/24 HOURS TOPICAL PATCH TD SCH (10:00)
[2017-01-01] MEDS: LIDOCAINE 5% TOPICAL PATCH TP SCH (10:00)
[2017-01-01] MEDS: BUDESONIDE/FORMETEROL FUMARATE 80/4.5 mcg INHALER IH SCH ×2 (10:00→21:50)
[2017-01-01] MEDS: PRENATAL VITAMINS W/ FOLIC ACID TABLET (FP) PO SCH (10:00)
[2017-01-01] MEDS: NICOTINE POLACRILEX 2 MG GUM BC PRN ×2 (10:02→15:17)
[2017-01-01] MEDS: QUEtiapine FUMARATE 50 MG TABLET PO SCH ×2 (13:27→21:51)
[2017-01-01] MEDS: MIRTAZAPINE 15 MG TABLET (FP) PO SCH (21:51)
[2017-01-01] MEDS: LIDOCAINE PATCH REMOVAL MC SCH (21:51)
[2017-01-01] MEDS: SUMAtriptan SUCCINATE 25 MG TABLET PO PRN (21:51)
[2017-01-01] MEDS: THIAMINE HCL 100 MG TABLET (FP) PO SCH (21:51)
[2017-01-02] MEDS: CYCLOBENZAPRINE HCL 10 MG TABLET (FP) PO SCH ×3 (06:44→21:35)
[2017-01-02] MEDS: LIDOCAINE 5% TOPICAL PATCH TP SCH (10:15)
[2017-01-02] MEDS: NICOTINE 14 MG/24 HOURS TOPICAL PATCH TD SCH (10:15)
[2017-01-02] MEDS: PRENATAL VITAMINS W/ FOLIC ACID TABLET (FP) PO SCH (10:15)
[2017-01-02] MEDS: PANTOPRAZOLE 20 MG TABLET (FP) PO SCH (10:15)
[2017-01-02] MEDS: BUDESONIDE/FORMETEROL FUMARATE 80/4.5 mcg INHALER IH SCH ×2 (10:15→21:34)
[2017-01-02] MEDS: NICOTINE POLACRILEX 2 MG GUM BC PRN ×2 (10:35→13:17)
[2017-01-02] MEDS: QUEtiapine FUMARATE 50 MG TABLET PO SCH ×2 (13:16→21:34)
[2017-01-02] MEDS: THIAMINE HCL 100 MG TABLET (FP) PO SCH (21:34)
[2017-01-02] MEDS: MIRTAZAPINE 15 MG TABLET (FP) PO SCH (21:34)
[2017-01-02] MEDS: SUMAtriptan SUCCINATE 25 MG TABLET PO PRN (21:34)
[2017-01-02] MEDS: LIDOCAINE PATCH REMOVAL MC SCH (21:35)
[2017-01-03] MEDS: NICOTINE POLACRILEX 2 MG GUM BC PRN ×2 (06:27→17:42)
[2017-01-03] MEDS: CYCLOBENZAPRINE HCL 10 MG TABLET (FP) PO SCH ×3 (06:27→21:38)
[2017-01-03] MEDS: LIDOCAINE 5% TOPICAL PATCH TP SCH (10:09)
[2017-01-03] MEDS: NICOTINE 14 MG/24 HOURS TOPICAL PATCH TD SCH (10:10)
[2017-01-03] MEDS: PANTOPRAZOLE 20 MG TABLET (FP) PO SCH (10:10)
[2017-01-03] MEDS: BUDESONIDE/FORMETEROL FUMARATE 80/4.5 mcg INHALER IH SCH ×2 (10:11→21:38)
[2017-01-03] MEDS: PRENATAL VITAMINS W/ FOLIC ACID TABLET (FP) PO SCH (10:11)
[2017-01-03] MEDS: QUEtiapine FUMARATE 50 MG TABLET PO SCH ×2 (13:14→21:38)
--- NOTE | 2017-01-03 13:48 | PN ---
Psychiatric Progress Note Vital Signs: Vital Signs Period Temp Pulse Resp BP Sys/Buenrostro Pulse Ox Last 24 Hr 98.0 F 99 16-18 114/78 Date of Session: 01/03/17 Chief Complaint:: Discharge visit HPI: Patient addressed Alcohol abuse and Cocaine dependnce comorbid with Bipolar disorder. ROS: Gerd,BA,Ostheoarthritis. Current Medications: Active Medications Generic Name Dose Route Start Last Admin Trade Name Freq PRN Reason Stop Dose Admin Acetaminophen 650 mg 12/07/16 20:49 12/14/16 05:19 Tylenol - PO 650 mg Q4H PRN Administration PAIN Al Hydroxide/Mg Hydroxide 30 ml 12/07/16 20:49 Mylanta Oral Suspension - PO Q6H PRN DYSPEPSIA Albuterol Sulfate 2 puff 12/07/16 20:51 12/23/16 20:54 Ventolin Hfa Inhaler - IH 2 puff Q4H PRN Administration SHORT OF BREATH/WHEEZING Budesonide/Formoterol Fumarate 2 puff 12/15/16 22:00 01/03/17 10:11 Symbicort 80/4.5mcg - IH 2 puff BID AMNAN Administration Colloidal Oatmeal 1 applic 12/31/16 11:07 12/31/16 13:06 Aveeno Soap - TP 1 bar DAILY PRN Administration HYGEINE Cyclobenzaprine HCl 10 mg 12/31/16 14:00 01/03/17 13:14 Flexeril - PO 10 mg TID MANAN Administration Diphenhydramine HCl 50 mg 12/07/16 20:49 12/09/16 21:27 Benadryl - PO 50 mg HSMR1 PRN Administration INSOMNIA Eucalyptus/Menthol/Phenol/Sorbitol 1 each 12/07/16 20:49 Cepastat Lozenge - MM Q4H PRN SORE THROAT Guaifenesin 10 ml 12/07/16 20:49 Robitussin Dm - PO Q6H PRN COUGH Hydroxyzine Pamoate 50 mg 12/29/16 13:32 Vistaril - PO Q4H PRN ANXIETY Ibuprofen 800 mg 12/08/16 15:48 12/31/16 10:38 Motrin - PO 800 mg Q6H PRN Administration SEVERE PAIN Lidocaine 1 patch 12/08/16 17:30 01/03/17 10:09 Lidoderm Patch - TP 1 patch DAILY MANAN Administration Lidocaine HCl 20 ml 12/13/16 13:09 12/18/16 08:50 Xylocaine 2% Viscous Oral - MM 20 ml Q4HPO PRN Administration ORAL PAIN/MOUTH SORES Loperamide HCl 4 mg 12/07/16 20:49 Imodium - PO Q6H PRN DIARRHEA Magnesium Citrate 300 ml 12/07/16 20:49 Citroma - PO Q48H PRN CONSTIPATION Magnesium Hydroxide 30 ml 12/07/16 20:49 12/11/16 10:17 Milk Of Magnesia - PO 30 ml DAILY PRN Administration CONSTIPATION Mirtazapine 15 mg 12/08/16 22:00 01/02/17 21:34 Remeron - PO 15 mg HS MANAN Administration Miscellaneous 1 each 12/08/16 22:00 01/02/17 21:35 Lidoderm Patch Removal MC 1 each DAILY@2200 MANAN Administration Nicotine 14 mg 12/08/16 10:00 01/03/17 10:10 Nicoderm Patch - TD Not Given DAILY MANAN Nicotine Polacrilex 2 mg 12/07/16 20:49 01/03/17 06:27 Nicorette Gum - BC 2 mg Q2H PRN Administration NICOTINE REPLACEMENT RX Pantoprazole Sodium 20 mg 12/08/16 10:00 01/03/17 10:10 Protonix - PO 20 mg DAILY MANAN Administration Multivit/Folic Acid/Iron 1 tab 12/08/16 10:00 01/03/17 10:11 Vitamins (Sjr) - PO 1 tab DAILY MANAN Administration Pseudoephedrine/Triprolidine 1 combo 12/07/16 20:49 Actifed - PO TID PRN NASAL CONGESTION Quetiapine Fumarate 150 mg 12/13/16 22:00 01/02/17 21:34 Seroquel - PO 150 mg HS MANAN Administration Quetiapine Fumarate 50 mg 12/23/16 14:00 01/03/17 13:14 Seroquel - PO 50 mg DAILY@1400 MANAN Administration Sumatriptan Succinate 25 mg 12/21/16 13:28 01/02/17 21:34 Imitrex - PO 25 mg HS PRN Administration HEADACHE Thiamine HCl 100 mg 12/07/16 22:00 01/02/17 21:34 Vitamin B1 - PO 100 mg HS MANAN Administration Current Side Effect: No Lab tests ordered: No Lab tests reviewed: Yes Provider note:: Patient will complete this program tpmorrow.She has met her treatment goals and will continue to address her issues [facility] OPDPatient reports finding Remeron 15 mg po hs and Seroquel 50 mg po bid and 150 mg po hs help to cope with mood instability,depression, anxiety.Scripts for 30 days provided. Patient identifies behaviors which contribute to relapse and coping skills,support she can utilize to maintain recovery. Patient is stable for discharge tomorrow. Total face to face time:: 30 Mental Status Exam - Mental Status Exam Alert and Oriented to: Time, Place, Person Cognitive Function: Grossly Intact Patient Appearance: Well Groomed Mood: Hopeful, Euthymic Affect: Appropriate, Mood Congruent Patient Behavior: Cooperative Speech Pattern: Clear Voice Loudness: Normal Thought Process: Goal Oriented Thought Disorder: Not Present Hallucinations: Denies Suicidal Ideation: Denies Homicidal Ideation: Denies Insight/Judgement: Fair Sleep: Fair Appetite: Good Muscle strength/Tone: Normal Gait/Station: Normal
[2017-01-03] MEDS ORDERED: PT OWN MED DRAWER 7, Y5N ONE (20:23)
[2017-01-03] MEDS: SUMAtriptan SUCCINATE 25 MG TABLET PO PRN (21:37)
[2017-01-03] MEDS: THIAMINE HCL 100 MG TABLET (FP) PO SCH (21:37)
[2017-01-03] MEDS: MIRTAZAPINE 15 MG TABLET (FP) PO SCH (21:38)
[2017-01-03] MEDS: LIDOCAINE PATCH REMOVAL MC SCH (22:05)
[2017-01-04] MEDS: CYCLOBENZAPRINE HCL 10 MG TABLET (FP) PO SCH (06:33)
[2017-01-04 06:53] VITALS: BP 121/78; PULSE 108; TEMP 98.2
== END 2017-01-04 08:40 | disposition home or self-care (01) | DRG 895 ==
LOC: YASAS 16:32 → Y3E 20:42
PROVIDERS: ADMIT Psychiatry & Neurology Psychiatry; ATTEND Psychiatry & Neurology Psychiatry
PROC: HZ42ZZZ Group Counseling for Substance Abuse Treatment, Cognitive-Behavioral (ICD-10-PCS; principal; 2016-12-07)
DX: F14.20 Cocaine dependence, uncomplicated (principal); Z68.1 Body mass index [BMI] 19.9 or less, adult; F10.10 Alcohol abuse, uncomplicated; F31.9 Bipolar disorder, unspecified; J45.909 Unspecified asthma, uncomplicated; K21.9 Gastro-esophageal reflux disease without esophagitis; M81.0 Age-related osteoporosis without current pathological fracture; G43.909 Migraine, unspecified, not intractable, without status migrainosus; R00.0 Tachycardia, unspecified; I10 Essential (primary) hypertension; E78.00 Pure hypercholesterolemia, unspecified; Z88.0 Allergy status to penicillin; Z85.3 Personal history of malignant neoplasm of breast; Z91.5 Personal history of self-harm; Z90.11 Acquired absence of right breast and nipple; R63.6 Underweight
CPT/HCPCS: 36415; 80053; 81003; 81015; 85027; 86593; 93005; 93010